=== PATIENT | male | born 1975 | race Caucasian/White ===

== ENCOUNTER 2024-01-08 17:11 | Emergency (ER) | payer SELFPAY ==
--- NOTE | 2024-01-08 17:16 | XRR_ITS ---
PROCEDURE INFORMATION: Exam: XR Right Ankle Exam date and time: 01/08/2024 5:30 PM Age: 48 years old Clinical indication: Injury or trauma; Fall; Blunt trauma; Ankle; Right; Additional info: Pain TECHNIQUE: Imaging protocol: Radiologic exam of the right ankle. Views: 3 or more views. COMPARISON: CR (LOW EXM, ) 01/08/2024 5:28 PM FINDINGS: Bones/joints: There is an acute transverse oblique fracture involving the lateral malleolus. There is minimal lateral displacement of the distal fracture fragment by distance of 3 mm. The talus remains well aligned. No other fracture noted. Soft tissues: Normal. XR/XR ankle RT min 3V* [id number] IMPRESSION: Acute lateral malleolus fracture
--- NOTE | 2024-01-08 17:16 | XRR_ITS ---
PROCEDURE INFORMATION: Exam: XR Right Foot Exam date and time: 01/08/2024 5:28 PM Age: 48 years old Clinical indication: Injury or trauma; Fall; Blunt trauma; Foot; Right; Additional info: Pain TECHNIQUE: Imaging protocol: Radiologic exam of the right foot. Views: 3 or more views. COMPARISON: No relevant prior studies available. FINDINGS: Bones/joints: There is an acute transverse oblique fracture involving the lateral malleolus. The fracture fragments remain well aligned. No other fracture is noted. Soft tissues: Normal. XR/XR foot RT min 3V* [id number] IMPRESSION: Acute lateral malleolus fracture
[2024-01-08 17:45] VITALS: BP 127/88; PULSE 104; RESP 16; TEMP 36.7; O2SAT 97; BMI 23.5
--- NOTE | 2024-01-08 18:21 | DCPLANNER ---
messaged ortho for er f/u
--- NOTE | 2024-01-08 18:35 | ED_ITS ---
HPI - Extremity Problem General: Chief complaint: Extremity Injury, Lower Stated complaint: Right foot and ankle pain Time Seen by Provider: 01/08/24 18:10 Source: patient Mode of arrival: ambulatory Limitations: no limitations History of Present Illness: Patient is a 48-year-old male presenting to the emergency department complaining of right foot pain onset 2 days. Patient notes he tripped over his dog outside, reports pain to the right lateral ankle. He states the swelling has only worsened, and he has become increasingly nonweightbearing due to the pain. He has no prior injuries or surgeries to that ankle. He states that he has not worked this weekend so he was able to prop it up and ice it, though it does not seem to be getting any better. Pain also is starting to extend proximally up the right lateral leg. There is increased bruising noted, however no other symptoms or injuries to report at this time. He states he has only been taking Naprosyn for pain relief. MD Complaint: joint swelling and joint pain Onset (ago): day(s) Pain Consistency: constant Location: right Radiation: proximal Relieving factors: medication Exacerbating factors: range of motion and weight bearing Associated symptoms: Reports no associated symptoms; Deny chest pain, fever(s) or rash Review of Systems General: Reports: 10 or more systems reviewed and unremarkable except in HPI and below Const: Denies: fever(s), chills or fatigue Eyes: Denies: change in vision ENMT: Denies: throat pain, ear or mastoid pain or nasal discharge Card: Denies: chest pain, palpitations, swelling of feet/ankles or lightheadedness Resp: Denies: dyspnea, productive cough or wheezing GI: Denies: abdominal pain, nausea, vomiting, diarrhea or constipation : Denies: flank pain, difficulty urinating, dysuria or urinary frequency Musc: Reports: joint pain, joint swelling, joint redness and limited range of motion; Denies: neck pain or back pain Skin/Breast: Denies: rash Neuro: Denies: headache(s), numbness in extremities or weakness in extremities Physical Exam Const: COMMON NORMALS: no acute distress, patient oriented x3 and no limitations GENERAL APPEARANCE: cooperative, comfortable and well developed ORIENTATION/CONSCIOUSNESS: Yes awake, Yes oriented to person, Yes oriented to place and Yes oriented to time HENMT: COMMON NORMALS: normocephalic, atraumatic and hearing grossly normal bilaterally HEAD & SCALP: normocephalic and atraumatic Eye: COMMON NORMALS: Equal, round and reactive pupils present, EOMs intact bilaterally and conjunctivae normal CONJUNCTIVA: Yes conjunctivae normal PUPIL: Yes Equal, round and reactive pupils present Neck/C-Spine: COMMON NORMALS: full ROM, supple and no JVD Resp: COMMON NORMALS: normal respiratory effort, No retractions, No use of accessory muscles and clear to auscultation bilaterally AUSCULTATION: clear to auscultation bilaterally Cardio: COMMON NORMALS: no JVD, regular rate, regular rhythm, No clicks present (Cardio), No murmurs present (Cardio) and No rub (Cardio) RATE: regular rate RHYTHM: regular rhythm Extremity: NARRATIVE EXTREMITY EXAM: There is a moderate amount of swelling noted to the lateral malleolus associated with some surrounding ecchymosis. Very antalgic gait on entry into the emergency department. Moderate to severe tenderness to palpation about the right lateral ankle extending proximally up the [place]inez. No palpable or obvious deformity. Neuro: COMMON NORMALS: patient oriented x3, moves all extremities, no focal motor deficits and no sensory deficits noted SENSORIUM/ORIENTATION: Yes oriented to person, Yes oriented to place and Yes oriented to time Skin: COMMON NORMALS: no rashes or lesions noted GENERAL SKIN EXAM: no rashes or lesions noted Course 2 Vital Signs: Vital signs: Vital Signs Temperature 98.0 F 01/08/24 17:45 Pulse Rate 104 H 01/08/24 17:45 Respiratory Rate 16 01/08/24 17:45 Blood Pressure 127/88 01/08/24 17:45 Pulse Oximetry 97 01/08/24 17:45 Oxygen Delivery Me thod Room Air 01/08/24 17:45 MDM - Extremity (Nontraumatic) Medical Decision Making Patient presented 2 days after suffering a right foot injury. He had remained ambulatory, though notes he did elevate it and ice it is much as possible. X- ray of the right ankle today did demonstrate an acute lateral malleolus fracture, and patient will be placed in a walking boot and referred to orthopedics. Fracture does appear stable at this time and seems to only involve the lateral malleolus. He will be instructed to take Tylenol and naproxen at [facility] for pain relief that he has, and elevate and ice is much as possible until follow-up. Reasons to return were discussed. Care of patient was discussed with supervising ED physician, Dr. Hernandez, who agrees with disposition. Lab Data Radiology Impressions Ankle X-Ray 01/08/24 17:16 IMPRESSION: Acute lateral malleolus fracture Foot X-Ray 01/08/24 17:16 IMPRESSION: Acute lateral malleolus fracture All radiology interpretation(s) finalized by discharge Discharge Plan Discharge Condition: Stable Referrals: Opal Doran, [facility]ENER[facility] [Primary Care Provider] - Coding Level of Care Code ED Heel Gouger for Padma Marrouqin
[2024-01-08 19:49] VITALS: BP 127/88; PULSE 104; RESP 16; TEMP 36.7; O2SAT 97
== END 2024-01-08 19:52 | disposition home or self-care (01) ==
PROVIDERS: Emergency Provider Physician Assistant; Family Provider Nurse Practitioner; PCP Nurse Practitioner
DX: S82.61XA Displaced fracture of lateral malleolus of right fibula, initial encounter for closed fracture (principal); W01.0XXA Fall on same level from slipping, tripping and stumbling without subsequent striking against object, initial encounter
CPT/HCPCS: 73610; 73630; 99283